=== PATIENT | male | born 2000 | race American Indian/Alaskan Native ===

== ENCOUNTER 2023-08-08 08:02 | Day surgery (SDC) | payer BC ==
[~2023-08-08] VITALS: Ht 167.6 cm; Wt 80.9 kg
[~2023-08-08 08:02] MED LIST: LR 1,000 ML IV SCH; Meclizine 25 MG TAB PO SCH
[2023-08-08] MEDS ORDERED: Lidocaine PF 2% (20 MG/ML) 5 ML VIAL ONE (08:06)
[2023-08-08] MEDS ORDERED: fentaNYL 50 MCG/ML 2 ML VIAL ONE (08:06)
[2023-08-08] MEDS ORDERED: dexAMETHasone 10 MG/ML VIAL ONE (08:08)
[2023-08-08] MEDS ORDERED: Ondansetron 4 MG/2 ML VIAL ONE (08:08)
[2023-08-08] MEDS ORDERED: PHENOL MC ONE ×2 (09:10)
[2023-08-08] MEDS ORDERED: Bacitracin Topical Oint 30 GM TUBE TOP ONE (09:10)
[2023-08-08 09:17] VITALS: BP 132/79; PULSE 66; TEMP 98
[2023-08-08] MEDS ORDERED: Meperidine 50 MG/ML 1 ML VIAL IV PRN (10:15)
[2023-08-08] MEDS ORDERED: droPERidol 2.5 MG/ML 2 ML VIAL IV PRN (10:15)
[2023-08-08] MEDS ORDERED: Ondansetron 4 MG/2 ML VIAL IV PRN ×2 (10:15→10:30)
[2023-08-08] MEDS ORDERED: fentaNYL 50 MCG/ML 2 ML VIAL IV PRN (10:15)
[2023-08-08] MEDS ORDERED: HYDROmorphone 2 MG/1 ML VIAL IV PRN (10:15)
[2023-08-08] MEDS ORDERED: Acetaminophen 325 MG TAB PO PRN (10:30)
[2023-08-08] MEDS ORDERED: Morphine 4 MG/ML VIAL IV PRN (10:30)
[2023-08-08 10:55] VITALS: BP 124/80; PULSE 64; TEMP 98.1
[2023-08-08 11:10] VITALS: BP 131/73; PULSE 66
[2023-08-08 11:25] VITALS: BP 122/82; PULSE 66
--- NOTE | 2023-08-08 11:35 | NUR ---
1055 RETURNS TO ROOM 6 PER CART. AWAKE, ALERT. WITH HOB ELEVATED 80 DEGREES. RESP UNLABORED. VITAL SIGNS OBTAINED. COCCYX AREA DRESSING CLEAN DY AND INTACT. DENIES PAIN. CALL LIGHT AT SIDE. SIGNIFICANT OTHER IN ROOM. 1110 AWAKE, ALERT. CONVERSES WITH SIGNIFICANT OTHER. TOLERATES PO SODA AND ICE CREAM WITHOUT NAUSEA. 1120 DISCHARGE INSTRUCTIONS REVIEWED. PATIENT VERBALIZES UNDERSTANDING. COPY PROVIDED IN DISCHARGE FOLDER 1127 SITS ON EDGE OF CART. DRESSES SELF
[2023-08-08 11:39] VITALS: BP 126/91; PULSE 62; TEMP 97.8
== END 2023-08-08 11:35 | disposition home or self-care (01) ==
LOC: SDCO 08:02
DX: L05.91 Pilonidal cyst without abscess (principal)
CPT/HCPCS: J0690; J1100; J2405; J2704; J3010; J7120